=== PATIENT | male | born 1975 | race Caucasian/White ===

== ENCOUNTER 2021-10-30 13:03 | Inpatient (IN) | payer MEDICAID, OTHER ==
[~2021-10-30] VITALS: Ht 157.5 cm; Wt 63.0 kg
[2021-10-30 13:17] VITALS: BP 124/77
[2021-10-30] MEDS ORDERED: KETOROLAC 30 MG/ML VIAL IVP ONE (13:35)
--- NOTE | 2021-10-30 13:37 | NUR ---
PATIENT AMBULATED TO BED 4 STEADY GAIT
--- NOTE | 2021-10-30 13:49 | NUR ---
labs drawn from iv and sent to lab at this time, left with 2 phlebs
[2021-10-30 13:55] LABS: BASOPHILS % (AUTO) 0.4 % (0.0-2.0); EOSINOPHILS # (AUTO) 0.1 K/uL (0-0.4); EOSINOPHILS % (AUTO) 1.1 % (0.0-4.0); HEMATOCRIT 40.4 % (36-52); HEMOGLOBIN 13.8 g/dL (12.0-18.0); LYMPHOCYTES # (AUTO) 1.7 K/uL (2.0-11.5); LYMPHOCYTES % (AUTO) 26.1 % (20.5-51.1); MEAN CORPUSCULAR HEMOGLOBIN 29 pg (27-31); MEAN CORPUSCULAR HGB CONC 34 g/dL (33-37); MEAN CORPUSCULAR VOLUME 83.8 fL (80-94); MONOCYTES # (AUTO) 0.6 K/uL (0.8-1.0); MONOCYTES % (AUTO) 10.1 % (1.7-9.3); NEUTROPHILS % (AUTO) 62.3 % (42.2-75.2); PLATELET COUNT (AUTO) 301 K/uL (140-450); RED BLOOD CELL COUNT(AUTO) 4.82 MIL/uL (4.20-6.10); RED CELL DISTRIBUTION WIDTH 13.6 % (11.6-13.7); WHITE BLOOD COUNT (AUTO) 6.4 K/uL (4.8-10.8)
[2021-10-30] MEDS: NACL 0.9% 1,000 ML IV SCH ×2 (14:18→17:54)
--- NOTE | 2021-10-30 15:45 | NUR ---
46 Y/O MALE COMPLAINS OF RIGHT LOWER QUADRANT PAIN. PATIENT STATES PAIN HAS BEEN WORSENING FOR THE PAST 4 DAYS AND RATES THE PAIN 8/10 CURRENTLY. NO PMH, NKA
[2021-10-30 16:02] LABS: APPEARANCE,URINE CLEAR (CLEAR); BILIRUBIN,URINE NEGATIVE (NEGATIVE); BLOOD, URINE 1+ (NEGATIVE); COLOR,URINE YELLOW (YELLOW); LEUKOCYTE ESTERASE ,URINE NEGATIVE (NEGATIVE); NITRITE, URINE NEGATIVE (NEGATIVE); UGLUCOSE TRACE (NEGATIVE)
[2021-10-30 16:39] LABS: RBC,URINE 0-5 /HPF (0-5)
[2021-10-30 16:41] LABS: CALCIUM OXALATE CRYSTALS,UR None Seen /HPF (None Seen); OTHER CRYSTALS,URINE None Seen /HPF (None Seen); TRICHOMONAS,URINE None Seen /HPF (None Seen); TRIPLE PHOSPHATE CRYSTAL,UR None Seen /HPF (None Seen); URIC ACID CRYSTALS,URINE None Seen /HPF (None Seen); URINE AMORPHOUS URATE None Seen /HPF (None Seen); YEAST,URINE None Seen /HPF (None Seen)
[2021-10-30 16:42] LABS: COARSE GRANULAR CASTS,URINE None Seen /LPF (None Seen); FINE GRANULAR CASTS,URINE None Seen /LPF (None Seen); HYALINE CASTS, URINE 0-10 /LPF (None Seen); OTHER CASTS, URINE None Seen /LPF (None Seen); RED BLOOD CELL CASTS,URINE None Seen /LPF (None Seen); WAXY CASTS,URINE None Seen /LPF (None Seen)
[2021-10-30 17:01] LABS: ALBUMIN 3.8 g/dL (3.4-5.0); ANION GAP 14.3 (8-16); CARBON DIOXIDE 26.2 mmol/L (21-32); CREATININE 0.7 mg/dL (0.6-1.3); POTASSIUM 3.5 mmol/L (3.5-5.1); TOTAL BILIRUBIN 0.3 mg/dL (0.0-1.0)
[2021-10-30] MEDS ORDERED: AMOXIL/CLAVULANATE 875/125 MG 1 TAB PO ONE (17:20)
[2021-10-30] MEDS ORDERED: MORPHINE SULFATE 4 MG/ML SYR IVP ONE (17:20)
[2021-10-30 18:03] LABS: ALBUMIN 3.2 g/dL (3.4-5.0); ANION GAP 12.1 (8-16); CREATININE 0.6 mg/dL (0.6-1.3); POTASSIUM 4.1 mmol/L (3.5-5.1); TOTAL BILIRUBIN 0.3 mg/dL (0.0-1.0)
--- NOTE | 2021-10-30 19:00 | NUR ---
REPORT GIVEN TO DHARMESH MENDEZ RN IS PATIENT NURSE UNABLE TO TAKE REPORT AT THE MOMENT, CHARGE NURSE WAS ON PHONE TAKING ORDER UNABLE TO TAKE REPORT
--- NOTE | 2021-10-30 19:14 | NUR ---
Patient will be admitted to care of DHARMESH. Admited to [facility]. Will go to room 112A. Belongings list completed. Report to ANDREA LINDSAY.
[2021-10-30 21:14] VITALS: BP 124/76
[2021-10-30] MEDS: DEXT 5% / NACL 0.9% 1,000 ML IV SCH (21:34)
[2021-10-30] MEDS: MORPHINE SULFATE 2 MG/ML SYR IVP PRN ×2 (21:35→23:53)
[2021-10-30] MEDS ORDERED: guaiFENesin DM 200/20 MG-10 ML 10 ML UDC PO PRN (22:05)
[2021-10-30] MEDS ORDERED: ONDANSETRON 4 MG/2 ML VIAL IM/IVP PRN (22:05)
[2021-10-30] MEDS ORDERED: POTASSIUM CHLORIDE 10 MEQ TABER PO PRN (22:05)
[2021-10-30] MEDS ORDERED: ACETAMINOPHEN 325 MG TAB PO PRN (22:05)
[2021-10-30] MEDS ORDERED: DOCUSATE SODIUM 100 MG GELCAP PO PRN (22:05)
--- NOTE | 2021-10-30 22:27 | NUR ---
PATIENT IN BED.NO ACUTE DISTRESS NOTED. COMPLAINT OF PAIN PRN GIVEN. IV INFUSING WITHOUT DIFFICULTY. WILL CONTINUE TO MONITOR.
[2021-10-30] MEDS ORDERED: cefTRIAXone 1,000 MG VIAL ONE (22:57)
[2021-10-30] MEDS: ZOLPIDEM 5 MG TAB PO PRN (23:12)
[2021-10-30 23:55] LABS: AMYLASE 39 U/L (25-115); CHOL/HDL RATIO 2.6 (1-4.5); FREE T4 (FREE THYROXINE) 0.87 ng/dL (0.76-1.46); HDL CHOLESTEROL 59 mg/dL (40-60); LDL (CALC) 82 mg/dL (60-100); MAGNESIUM 2.4 mg/dL (1.8-2.4); PHOSPHORUS 3.6 mg/dL (2.5-4.9); THYROID STIMULATING HORMONE 0.84 uIU/mL (0.34-3.74); TRIGLYCERIDES 55 mg/dL (30-150)
[2021-10-31 04:00] VITALS: BP 111/75
[2021-10-31] MEDS: MORPHINE SULFATE 2 MG/ML SYR IVP PRN (05:50)
[2021-10-31] MEDS: DEXT 5% / NACL 0.9% 1,000 ML IV SCH ×3 (06:40→20:16)
[2021-10-31 06:42] LABS: BASOPHILS % (AUTO) 0.4 % (0.0-2.0); EOSINOPHILS # (AUTO) 0.1 K/uL (0-0.4); EOSINOPHILS % (AUTO) 2.4 % (0.0-4.0); HEMATOCRIT 38.1 % (36-52); HEMOGLOBIN 12.7 g/dL (12.0-18.0); LYMPHOCYTES # (AUTO) 1.4 K/uL (2.0-11.5); LYMPHOCYTES % (AUTO) 35.1 % (20.5-51.1); MEAN CORPUSCULAR HEMOGLOBIN 28 pg (27-31); MEAN CORPUSCULAR HGB CONC 33 g/dL (33-37); MEAN CORPUSCULAR VOLUME 84.3 fL (80-94); MONOCYTES # (AUTO) 0.5 K/uL (0.8-1.0); MONOCYTES % (AUTO) 12.1 % (1.7-9.3); PLATELET COUNT (AUTO) 268 K/uL (140-450); RED BLOOD CELL COUNT(AUTO) 4.51 MIL/uL (4.20-6.10); RED CELL DISTRIBUTION WIDTH 13.6 % (11.6-13.7)
[2021-10-31 07:01] LABS: ANION GAP 8.6 (8-16); CARBON DIOXIDE 28.2 mmol/L (21-32); CREATININE 0.6 mg/dL (0.6-1.3); POTASSIUM 3.8 mmol/L (3.5-5.1)
[2021-10-31 07:06] LABS: PROTHROMBIN TIME 9.9 secs (10.8-13.4)
[2021-10-31 08:00] VITALS: BP 122/75
[2021-10-31] MEDS: PANTOPRAZOLE 40 MG TABEC PO SCH (09:01)
--- NOTE | 2021-10-31 09:17 | NUR ---
PATIENT HAS BEEN SCREENED AND CATEGORIZED LOW NUTRITION RISK. PATIENT WILL BE SEEN WITHIN 7 DAYS OF ADMISSION. 11/06/[address]
--- NOTE | 2021-10-31 12:57 | NUR ---
DC PLANNIN YRS OLD MALE PATIENT WAS ADMITTED FROM HOME WITH A DX OF ACUTE APPENDICITIS . PATIENT HAS NO MEDICAL. CT ABD SHOWED FOCAL REGION OF WALL THICKENING AND SURROUNDS FATTY INDURATION OF THE MID ASCENDING COLON MAY REPRESENT DIVERTICULITIS OR FOCAL COLITIS. NO EVIDENCE OF ACUTE APPENDICITIS. CXR SHOWED NO ACUTE CARDIOPULMONARY DISEASE. RAPID COVID TEST NEGATIVE. ADMINISTERED IVF, PAIN MEDS IV MORPHINE, IV ABX FLAGYL AND ROCEPHIN. CONSULTED WITH DR TEMPLE SURGEON. DC PLAN TO GO HOME WHEN STABLE. CM TO FOLLOW Addendum: 11/01/21 at 1306 by Susan Anaya RN DC PLANNING: STILL AWAITING FOR DR TEMPLE TO SEE PATIENT. DR FLORES TEXT HIM AWAITING FOR RESPONSE. CM TO FOLLOW Addendum: 11/01/21 at 1459 by Susan Anaya RN DC PLANNING: DR TEMPLE IN THE UNIT SEEN PATIENT EXPLAINED THE CT FINDINGS WITH THE PATIENT AND HIS DAUGHTER. STATED NO SURGERY NEEDED AT THIS TIME. CONTINUE IV FLUID AND IV ABX AND PLAN TO DC HIM ON FRIDAY AND TO MAKE OUT PATIENT APPOINTMENT WITH HIM. DR TEMPLE ANSWERED ALL QUESTIONS AND CONCERNS TO DAUGHTER AND PATIENT BOTH VERBALIZED UNDERSTANDING AND AGREED WITH THE PLAN. DR TEMPLE DISCUSSED WITH DR FLORES WELL. PROVIDED DR TEMPLE'S OFFICE PHONE NUMBER AND ADDRESS. DC PLAN TO GO HOME FRIDAY. CM TO FOLLOW
[2021-10-31 16:00] VITALS: BP 120/77
--- NOTE | 2021-10-31 18:58 | NUR ---
UPDATED PATIENTS FAMILY RE PATIENT STATUS REQUESTED.
--- NOTE | 2021-10-31 19:25 | NUR ---
RECD REPORT FROM AM NURSE. PATIENT IS RESTING COMFORTABLY IN BED, A/OX4. RESPIRATION EVEN AND UNLABORED. ABLE TO AMBULATE BY HIMSELF. IV OF D5 NS INFUSING AT 100 ML/HR LEFT AC G20. DENIES PAIN 0/10.
[2021-10-31 20:00] VITALS: BP 110/75
--- NOTE | 2021-10-31 20:15 | NUR ---
INFORMED DR. GARLAND, DR. TEMPLE HAS NOT COME YET TO SEE PT. CT SHOW NO APPENDICITIS BUT DIVERTICULITIS AND WILL SEE PATIENT TOMORROW. ORDERED REGULAR DIET FOR PATIENT.
[2021-10-31] MEDS: HYDROcodone/APAP 7.5/325 MG 1 TAB PO PRN (20:29)
--- NOTE | 2021-10-31 21:29 | NUR ---
RESTING IN BED, WATCHING TV. VERBALIZED ABDOMINAL PAIN IS NOW 1/10 AFTER TAKING NORCO.
[2021-11-01] VITALS: BP 99/63
--- NOTE | 2021-11-01 | NUR ---
STILL AWAKE, WATCHING TV.
[2021-11-01] MEDS: HYDROcodone/APAP 7.5/325 MG 1 TAB PO PRN ×4 (01:10→17:51)
--- NOTE | 2021-11-01 02:00 | NUR ---
NO COMPLAINT OF PAIN 0/10. RESTING COMFORTABLY IN BED.
[2021-11-01] MEDS: DEXT 5% / NACL 0.9% 1,000 ML IV SCH ×4 (02:35→22:35)
[2021-11-01 04:00] VITALS: BP 100/63
--- NOTE | 2021-11-01 04:00 | NUR ---
STILL SLEEPING COMFORTABLY IN BED.
--- NOTE | 2021-11-01 06:40 | NUR ---
WITH ON AND OFF COMPLAINT OF ABDOMINAL PAIN, ATTENDED PROMPTLY. MEDICATED PER MD ORDER.
--- NOTE | 2021-11-01 07:05 | NUR ---
CONDITION REMAIN STABLE. WILL ENDORSE TO AM SHIFT NURSE FOR CONTINUITY OF CARE.
[2021-11-01 07:09] LABS: ANION GAP 8.2 (8-16); CARBON DIOXIDE 28.3 mmol/L (21-32); CREATININE 0.8 mg/dL (0.6-1.3); POTASSIUM 4.5 mmol/L (3.5-5.1)
[2021-11-01 07:36] LABS: BASOPHILS % (AUTO) 0.5 % (0.0-2.0); EOSINOPHILS # (AUTO) 0.1 K/uL (0-0.4); EOSINOPHILS % (AUTO) 3.3 % (0.0-4.0); HEMATOCRIT 38.5 % (36-52); LYMPHOCYTES # (AUTO) 1.8 K/uL (2.0-11.5); MEAN CORPUSCULAR HEMOGLOBIN 28 pg (27-31); MEAN CORPUSCULAR HGB CONC 34 g/dL (33-37); MEAN CORPUSCULAR VOLUME 84.3 fL (80-94); MONOCYTES # (AUTO) 0.5 K/uL (0.8-1.0); MONOCYTES % (AUTO) 14.3 % (1.7-9.3); NEUTROPHILS # (AUTO) 1.1 K/uL (1.8-7.7); NEUTROPHILS % (AUTO) 30.9 % (42.2-75.2); PLATELET COUNT (AUTO) 296 K/uL (140-450); RED BLOOD CELL COUNT(AUTO) 4.57 MIL/uL (4.20-6.10); RED CELL DISTRIBUTION WIDTH 13.2 % (11.6-13.7); WHITE BLOOD COUNT (AUTO) 3.4 K/uL (4.8-10.8)
[2021-11-01 08:00] VITALS: BP_SYST 110; BP_SYST 130; BP_DIAS 72; BP_DIAS 88
--- NOTE | 2021-11-01 08:05 | NUR ---
RECEIVED PATIENT, AOX4, RESPIRATIONS EVEN AND UNLABORED ON ROOM AIR, VITAL SIGNS STABLE. PATIENT STATES ABDOMINAL PAIN IS TOLERABLE AT THIS TIME PAIN IS LOCATED IN RUQ, DULL, AND RLQ TENDER UPON PALPATION. TOLERATING REGULAR DIET WELL WITH NO NAUSEA/VOMITING. PATIENT STATES PAIN WORSENS AFTER EATING. IV FLUIDS INFUSING. LAST BM 10/29. UPDATED PT ON PLAN OF CARE. WILL CONTINUE TO MONITOR.
[2021-11-01 08:08] LABS: T4 (THYROXINE) 7.5 ug/dL (4.5-12.0)
[2021-11-01] MEDS: PANTOPRAZOLE 40 MG TABEC PO SCH (08:44)
--- NOTE | 2021-11-01 11:30 | NUR ---
PATIENT REPORTS PAIN IN ABDOMEN, PRN NORCO GIVEN. PATIENT WILL BE NPO FOR CT SCAN. CONTRAST QUESTIONNAIRE COMPLETED AND PLACED IN CHART.
[2021-11-01] MEDS: metroNIDAZOLE 500 MG/NS PREMIX 100 ML IV SCH ×2 (12:03→20:23)
--- NOTE | 2021-11-01 13:34 | NUR ---
PATIENT BEING PICKED UP FOR CT SCAN.
--- NOTE | 2021-11-01 14:20 | NUR ---
DR TEMPLE AT BEDSIDE EXPLAINED PLAN OF CARE TO PATIENT. PATIENT AND DAUGHTER WERE UPDATED ON PLAN OF CARE.
--- NOTE | 2021-11-01 15:27 | NUR ---
CLARIFIED WITH DR FLORES, PATIENT OK TO HAVE CLEAR LIQUID DIET.
--- NOTE | 2021-11-01 15:55 | NUR ---
DC PLANNING PATIENT IS 46-YEAR-OLD MALE ADMITTED ON 10/30/2021 AT [facility]ED DUE TO COMPLAINTS OF ABDOMINAL PAINS. (PATIENT IS HEBREW SPEAKING ONLY). SW MET WITH PATIENT AT BEDSIDE TO DISCUSS AND GATHER PATIENT'S COLLATERAL INFORMATION. PATIENT REPORTED LIVING AT HOME ALONE IN HIS APARTMENT IN [facility]. PATIENT STATED HAVING SUPPORT FROM HIS FAMILY. MAINLY HIS BROTHER PEREZ SCANLON WHO IS HIS EMERGENCY CONTACT. PATIENT REPORTED BEEN ACTIVE AND INDEPENDENT AT HOME, PATIENT REPORTED NOT HAVING ADVANCE DIRECTIVES AND WAS INTERESTED ON GETTING INFORMATION PACKET PROVIDED BY SW AT THE TIME OF VISIT. PATIENT REPORTED NOT HAVING OR NEEDING DME AND NOT HAVING ANY ISSUES WITH GETTING OR TAKING ANY MEDICATIONS. IN THE [facility] BY HIS HOUSE IN [place] IN [place] AND [place]. SW EXPLAINED TO PATIENT THE NEED TO FOLLOW UP WITH AN APPOINTMENT WITHIN 5-7 DAYS WITH PCP AFTER DC, PATIENT AGREED AND WILL BE MAKING HIS OWN FOLLOW UP APPOINTMENT AFTER HE DISCHARGES WITH A DOCTOR HE WILL BE GOING FROM THE CLINIC LIST THAT WAS PROVIDED TO HIM. SW ALSO PROVIDED PATIENT WITH A LIST OF CLINIC RESOURCES. PATIENT STATED THAT HIS BROTHER PEREZ WILL BE ASSISTING HIM WITH TRANSPORTATION BACK HOME WHEN HE IS READY FOR DISCHARGE. SW WILL FOLLOW UP WITH PATIENT NEEDED.
[2021-11-01 16:00] VITALS: BP 127/83
--- NOTE | 2021-11-01 17:53 | NUR ---
PATIENT TOOK A SHOWER, IV FLUIDS RECONNECTED TO PATIENT. PATIENT REPORTS MODERATE PAIN IN RUQ/RLQ. PRN NORCO GIVEN. TOLERATING CLEAR LIQUIDS WELL, STATES HE GETS MILD ABDOMINAL PAIN WHEN EATING. HAD BM TODAY.
--- NOTE | 2021-11-01 18:48 | NUR ---
PATIENT REPORTS PAIN IS TOLERABLE. EATING CLEAR LIQUIDS NOW. STATES HIS BM EARLIER WAS BLACK, FORMED. MDS ARE AWARE. NO SIGNS OF BLEEDING, IV FLUIDS INFUSING. WILL ENDORSE TO NIGHT RN.
--- NOTE | 2021-11-01 19:25 | NUR ---
RECEIVED REPORT FROM AM ANGÉLICA MARTINEZ DISCUSSED POC FOR CONTINUITY OF CARE. IV FLUIDS INFUSING. NO C/O PAIN OR DISTRESS. ALERT, AWAKE SITTING UP. FINISHED DINNER 75%. ALL SAFETY MEASURES IN PLACE. WILL CONTINUE TO MONITOR.
--- NOTE | 2021-11-01 21:00 | NUR ---
HS FLAGYL IVPB INFUSED. ALSO ROCEPHIN IVPB ANTIBIOTIC HUNG. PT ALERT , AWAKE RESTING LISTENING TO TV AND PLAYING ON CELL PHONE. CALL LIGHT WITHIN REACH. CONTINUE WITH FREQ ROUNDS.
[2021-11-01] MEDS ORDERED: cefTRIAXone 1,000 MG VIAL ONE (21:18)
[2021-11-01] MEDS: MORPHINE SULFATE 2 MG/ML SYR IVP PRN (21:52)
--- NOTE | 2021-11-01 22:00 | NUR ---
PT C/O RUQ PAIN 01/20. RECEIVED MSO4 2MG IVP. ALSO PT UP TO BATHROOM VOIDED. ALL SAFETY MEASURES IN PLACE. WILL CONTINUE TO OBSERVE.
--- NOTE | 2021-11-01 22:30 | NUR ---
FREQ ROUNDS. MEDICATED WITH AMBIEN 5MG TABLET FOR INSOMNIA. SLEEPING AFTER 30 MINUTES.
[2021-11-01] MEDS: ZOLPIDEM 5 MG TAB PO PRN (23:00)
--- NOTE | 2021-11-01 23:00 | NUR ---
PAIN REASSESSMENT PAIN DOWN TO A 4. C/O INSOMNIA. RECEIVED AMBIEN 5MG TAB PO. WILL CONTINUE WITH FREQ ROUNDS.
--- NOTE | 2021-11-02 03:31 | NUR ---
FREQ ROUNDS. CHECKED PT IS STABLE AND ASLEEP IN BED. RR EVEN AND UNLABORED WITH EQUAL CHEST RISE. ALL SAFETY MEASURES IN PLACE. CALL LIGHT WITHIN REACH. WILL CONTINUE TO MONITOR.
[2021-11-02 04:00] VITALS: BP 110/70
[2021-11-02] MEDS: metroNIDAZOLE 500 MG/NS PREMIX 100 ML IV SCH ×3 (04:09→20:44)
--- NOTE | 2021-11-02 06:00 | NUR ---
FREQ ROUNDS . PT IS SLEEPING RR EVEN AND UNLABORED WITH EQUAL CHEST RISE. ALL SAFETY MEASURES IN PLACE.
[2021-11-02 06:51] LABS: BASOPHILS % (AUTO) 0.4 % (0.0-2.0); EOSINOPHILS # (AUTO) 0.1 K/uL (0-0.4); HEMATOCRIT 39.5 % (36-52); HEMOGLOBIN 13.5 g/dL (12.0-18.0); LYMPHOCYTES # (AUTO) 1.3 K/uL (2.0-11.5); LYMPHOCYTES % (AUTO) 38.1 % (20.5-51.1); MEAN CORPUSCULAR HEMOGLOBIN 28 pg (27-31); MEAN CORPUSCULAR HGB CONC 34 g/dL (33-37); MEAN CORPUSCULAR VOLUME 82.8 fL (80-94); MONOCYTES # (AUTO) 0.5 K/uL (0.8-1.0); NEUTROPHILS # (AUTO) 1.5 K/uL (1.8-7.7); NEUTROPHILS % (AUTO) 44.5 % (42.2-75.2); PLATELET COUNT (AUTO) 326 K/uL (140-450); RED BLOOD CELL COUNT(AUTO) 4.77 MIL/uL (4.20-6.10); RED CELL DISTRIBUTION WIDTH 13.4 % (11.6-13.7); WHITE BLOOD COUNT (AUTO) 3.4 K/uL (4.8-10.8)
[2021-11-02 06:55] LABS: ANION GAP 10.3 (8-16); CARBON DIOXIDE 28.5 mmol/L (21-32); CREATININE 0.7 mg/dL (0.6-1.3); POTASSIUM 3.8 mmol/L (3.5-5.1)
--- NOTE | 2021-11-02 07:25 | NUR ---
RECEIVED REPORT FROM RATING OFFICER NURSE. PT IS AWAKE, A&OX4. ON ROOM AIR, WITH BREATHING UNLABORED.SKIN IS INTACT, WITH IV SITE ON LEFT AC, 20G, RUNNING AT 100ML/HR WITH NS. LAST BOWEL MOVEMENT WAS ON THE , PER RATING OFFICER NURSE. PLAN OF CARE DISCUSSED. WILL CONTINUE TO MONITOR.
--- NOTE | 2021-11-02 07:35 | NUR ---
ENDORSED PT REPORT TO AM NURSE FOR CONTINUITY OF CARE. PT IS STABLE.
[2021-11-02] MEDS: DEXT 5% / NACL 0.9% 1,000 ML IV SCH ×2 (08:56→20:12)
[2021-11-02] MEDS: PANTOPRAZOLE 40 MG TABEC PO SCH (08:59)
--- NOTE | 2021-11-02 10:00 | NUR ---
PT COMPLAINED OF RIGHT LOWER ABDOMINAL PAIN, WITH A 7/10 PAINSCALE. NORCO AND COLACE GIVEN, PER DR'S ORDER.
[2021-11-02] MEDS: HYDROcodone/APAP 7.5/325 MG 1 TAB PO PRN ×2 (10:38→20:48)
[2021-11-02 12:00] VITALS: BP 109/71
--- NOTE | 2021-11-02 12:00 | NUR ---
PT AWAKE, LYING ON HIS BE. PT IS NOT IN DISTRESS AT THIS TIME. WILL CONTIUE TO MONITOR.
--- NOTE | 2021-11-02 16:00 | NUR ---
PT LYING ON HIS BED, AWAKE. PT BREATHING UNLABORED. WILL CONTINUE TO MONITOR.
--- NOTE | 2021-11-02 19:20 | NUR ---
GAVE REPORT TO RECONDITIONING ASSOCIATE NURSE, PT IS STABLE. DISCUSSED PLAN OF CARE.
--- NOTE | 2021-11-02 19:30 | NUR ---
RECEIVED REPORT FROM ELSIE Crowder FOR CONTINUITY OF CARE. NOTIFIED BY DAYSHIFT THAT MSO4 2MG WAS NOT ENTERED INTO THE COMPUTER. ENTERED MED FOR DAY AND TIME GIVEN. 11/01/2021 21:52. CHARGE NURSE GERA MAGANA RN AWARE.
[2021-11-02 20:00] VITALS: BP 118/72
--- NOTE | 2021-11-02 20:40 | NUR ---
PT C/O 12/21 RLQ PAIN. MEDICATED WITH NORCO 7.5/325 1 TAB. PT AWAKE, A&OX4. RESTING IN BED. VSS. HS MEDS GIVEN. AMBULATES IN ROOM. CALL LIGHT WITHIN REACH. ENCOURAGED TO CALL FOR ANY ASSISTANCE. WILL CONTINUE TO MONITOR.
--- NOTE | 2021-11-02 21:40 | NUR ---
NORCO EFFECTIVE PT SLEEPING RR EVEN AND UNLABORED WITH EQUAL CHEST RISE. IV ABX INFUSED IV SITE LFA 20G PATENT. IVF D5NS @100CC/HR INFUSING PER PUMP. ALL SAFETY MEASURES IN PLACE. CALL LIGHT WITHIN REACH. WILL CONTINUE TO MONITOR.
[2021-11-03 04:00] VITALS: BP 95/58
[2021-11-03] MEDS: metroNIDAZOLE 500 MG/NS PREMIX 100 ML IV SCH ×2 (04:07→13:30)
[2021-11-03 06:46] LABS: ANION GAP 11.1 (8-16); CARBON DIOXIDE 24.4 mmol/L (21-32); CREATININE 0.6 mg/dL (0.6-1.3); POTASSIUM 3.5 mmol/L (3.5-5.1)
[2021-11-03 07:20] LABS: BASOPHILS % (AUTO) 0.5 % (0.0-2.0); EOSINOPHILS # (AUTO) 0.1 K/uL (0-0.4); EOSINOPHILS % (AUTO) 3.6 % (0.0-4.0); HEMATOCRIT 39.1 % (36-52); HEMOGLOBIN 13.5 g/dL (12.0-18.0); LYMPHOCYTES # (AUTO) 1.7 K/uL (2.0-11.5); LYMPHOCYTES % (AUTO) 48.5 % (20.5-51.1); MEAN CORPUSCULAR HEMOGLOBIN 29 pg (27-31); MEAN CORPUSCULAR HGB CONC 35 g/dL (33-37); MEAN CORPUSCULAR VOLUME 82.5 fL (80-94); MONOCYTES # (AUTO) 0.5 K/uL (0.8-1.0); MONOCYTES % (AUTO) 15.2 % (1.7-9.3); NEUTROPHILS # (AUTO) 1.2 K/uL (1.8-7.7); NEUTROPHILS % (AUTO) 32.2 % (42.2-75.2); PLATELET COUNT (AUTO) 319 K/uL (140-450); RED BLOOD CELL COUNT(AUTO) 4.74 MIL/uL (4.20-6.10); RED CELL DISTRIBUTION WIDTH 13.3 % (11.6-13.7); WHITE BLOOD COUNT (AUTO) 3.6 K/uL (4.8-10.8)
--- NOTE | 2021-11-03 07:20 | NUR ---
RECEIVED REPORT FROM ELECTRONIC COMPONENTS ASSEMBLER NURSE. PT IS AWAKE, NOT IN DISTRESS AT THIS TIME. PT ON ROOM AIR, IV SITE ON LEFT AC, 22G, INTACT AND INFUSING WELL. WILL CONTINUE TO MONITOR.
--- NOTE | 2021-11-03 08:56 | NUR ---
SPOKE TO DR TEMPLE. WANTS PT TO FOLLOW UP IN OFFICE IN 2-3 DAYS. PT WILL HAVE COLONOSCOPY OUTPATIENT WITH DR TEMPLE
[2021-11-03] MEDS: PANTOPRAZOLE 40 MG TABEC PO SCH (10:09)
[2021-11-03] MEDS: DEXT 5% / NACL 0.9% 1,000 ML IV SCH ×2 (10:15)
[2021-11-03 12:00] VITALS: BP 120/70
--- NOTE | 2021-11-03 12:00 | NUR ---
PT TO BE DISCHARGED HOME. NOTIFIED PT TO FOLLOW UP WITH DR TEMPLE
[2021-11-03] MEDS ORDERED: PANT40EC56 PO (12:56)
[2021-11-03] MEDS ORDERED: DOCU-299 PO (12:56)
[2021-11-03] MEDS ORDERED: METR-520 PO (12:56)
[2021-11-03 13:54] VITALS: BP 120/70
--- NOTE | 2021-11-03 15:00 | NUR ---
PT DISCHARGED HOME WITH SPOUSE. PERSONAL BELONGINGS IN POSSESSION. EDUCATED AND PROVIDED SUPPLIES FOR OSTIOMY CARE. ALL SAFETY MEASURES IN PLACE. ALL IVS AND ID BANDS REMOVED. PT TOLERATED WELL. Addendum: 11/03/21 at 1519 by Juan Berg RN RN DISREGARD LAST NOTE.
--- NOTE | 2021-11-03 16:20 | NUR ---
PT DISCHARGED HOME WITH DAUGHTER. ALL PERSONAL BELONGINGS IN POSSESSION. IV AND ID BAND REMOVED. EDUCATED PT WITH DISCHARGE INSTRUCTIONS. ALL SAFETY MEASURES IN PLACE.
== END 2021-11-03 16:20 | disposition home or self-care (01) | DRG 377 ==
LOC: MED 13:03 → MTU 18:11
PROVIDERS: ADMIT Family Medicine; ATTEND Family Medicine
DX: K57.81 Diverticulitis of intestine, part unspecified, with perforation and abscess with bleeding (principal); K35.33 Acute appendicitis with perforation, localized peritonitis, and gangrene, with abscess; K52.9 Noninfective gastroenteritis and colitis, unspecified; Z20.822 Contact with and (suspected) exposure to COVID-19
CPT/HCPCS: 36415; 71045; 80048; 80053; 81001; 82150; 83036; 83605; 83690; 83735; 83880; 84100; 84436; 84439; 84443; 84479; 84484; 85025; 85610; 85730; 87040; 87086; 96361; 96374; 96375; 99285; J0696; J1885; J2270; J3490; J7060; Q0092; Q9967